=== PATIENT | male | born 1965 | race Caucasian/White ===

== ENCOUNTER 2023-11-06 20:49 | Emergency (ER) | payer OTHER, SELFPAY ==
[2023-11-06 20:52] VITALS: BP 175/102
--- NOTE | 2023-11-06 22:11 | ED.GENMED ---
History of Present Illness
General
Chief Complaint: Musculo-Skeletal Complaint
Source: patient
Exam Limitations: none
Time Seen by Provider: 11/06/23 21:50
Travel History
Have you had any contact with someone who has COVID-19?: No
Do you have any symptoms of coronavirus? Fever > 100 degrees, chills, cough, shortness of breath, sore throat, loss of taste or smell, muscle aches, or headache?: No
History of Present Illness
History of Present Illness:
This is a 57 year old male that comes in with c/o right sided chest pain. States that last Tuesday he was playing Hockey and at the beginning of the game he got hit on the side with a hockey puck. States that it missed all his padding. States that
he finished the game and also played on Tuesday night. States that he was a little sore and he iced the area and he felt better. Then today he started with increased pain on the right flank of the chest and he felt like he was unable to take a
deep breath. States that he also had some numbness in the right forearm. Denies any fever, chills, SOB, abd pain, nausea, vomiting, diarrhea, headache, dizziness, urinary burning.
Past History
Past History
ED Past Medical History: HTN, Hypercholesterolemia and Other (Vaso Vagal syncope)
ED Past Surgical History: None
Social History
Tobacco: Non-smoker
Alcohol: Occasional
Personal:
Living: with family
Review of Systems
Review of Systems
All Other Systems: ROS reviewed and negative except as documented in HPI and ROS
Constitutional: Reports no symptoms; Denies fever or chills
EENT: Reports no symptoms
Respiratory: Reports trouble breathing (Unable to take a deep breath); Denies cough
Cardiac: Reports chest pain (Right flank chest pain, )
ABD/GI: Reports no symptoms; Denies abdominal pain, nausea, vomiting or diarrhea
: Reports no symptoms; Denies dysuria, frequency or urgency
Musculoskeletal: Reports no symptoms
Skin: Reports no symptoms
Neurological: Reports no symptoms; Denies dizzy or headache
Psychiatric: Reports no symptoms
Phy Exam
General Physical Exam
General Presentation: well appearing and no apparent distress
General age: appears stated age
General Skin: warm and dry
General Habitus: normal
General Mental: alert
General Hydration: appears well hydrated
ENT Exam
ENT Exam: TM's normal, pharynx normal and neck supple
Eye Exam
Eye Exam: EOMI
Cardiovascular Exam
Cardiovascular Exam: regular rate/rhythm, no edema, no murmur and normal peripheral pulses
Pulmonary Exam
Pulmonary Exam: no respiratory distress, no rales, no crackles, no rhonchi, no wheezing, no cough, decreased breath sounds (Right base, Otherwise clear lungs) and other (Tenderness with palpation on the right lower rib area. )
Gastrointestinal Exam
Gastrointestinal Exam: normal bowel sounds, non tender, soft, no organomegaly, no pulsatile mass and non distended
Musculoskeletal Exam
Musculoskeletal Exam: full ROM
Skin Exam
Skin Exam: normal color, warm/dry, no rash, no petechia and other (Small contusion right lateral chest )
Psychiatric Exam
Psychiatric Exam: normal mood/affect
Course
Orders/Labs/Results
Orders:
Orders
11/06/23 21:48
Ribs, Right 3 View W/PA Chest [CR Ribs-right 3 Vw W/pa Chest*] Urgent
Comment:
Reason For Exam: Ice hockey injury
11/06/23 22:10
Electrocardiogram (*1) Urgent
Reason for Study: Chest Pain
Other Reason for Exam: rIGHT SIDED
EKG- Treatment ONCE
11/06/23 22:45
Complete Blood Count/With Diff Urgent
Comprehensive Metabolic Panel Urgent
D-Dimer Urgent
Troponin I Urgent
Abnormal Lab Results
11/06/23
22:45
RBC 4.65 L 10^6/uL
(4.70-6.10)
MCH 31.4 H pg
(27.0-31.0)
Alkaline Phosphatase 139 H U/L
(38-126)
11/06/23 22:45
11/06/23 22:45
Alk phos slightly elevated. D-dimer <0.27, Troponin <0.012
Vital Signs
Initial and Last Documented VS:
Initial Vital Signs
Temp Pulse Resp BP Pulse Ox
98.3 F 94 18 175/102 97
11/06/23 20:52 11/06/23 20:52 11/06/23 20:52 11/06/23 20:52 11/06/23 20:52
Last Documented Vital Signs
Temp Pulse Resp BP Pulse Ox
98.3 F 84 18 155/83 98
11/06/23 20:52 11/06/23 22:48 11/06/23 22:48 11/06/23 22:48 11/06/23 22:48
MDM/Problems Addressed
Differential Diagnosis Includes:
PE, Fracture ribs, PNA, Coronary syndrome
MDM/Problems Addressed:
This is a 57 year old male that comes in with c/o right lateral chest wall pain. States that he was hit in the side of his chest with a hockey puck last Tuesday. States that he iced it and it was sore but then he felt better. Today he started with
increased pain, can't take a deep breath. States that he also had some right arm numbness in the forearm.
Will check labs. D-dimer, ECG and chest x-ray, Patient refused pain medication at this.
Back into see patient. Reviewed all findings. Patient has no numbness at this time and states that he can push on the muscle to reproduce this discomfort. States that it is almost like when you over use your arms. Explained that he has a 9th rib
fracture and this will just take time to heal. Follow up with the family doctor. Tylenol or Ibuprofen for pain. Return with any concerns.
Chronic conditions affecting care:
NA
Acute Exacerbation and/or Progression of Chronic Illness:
NA
*Radiology
Radiology exam reviewed: radiology read reviewed (Chest- Subtle minimally displaced fracture of the anterolateral right ninth rib. The lungs appear slightly hypoinflated. There is no evidence of pneumothorax or pleural effusion. )
*Pulse Oximetry
Patient hypoxic: no
*EKG
Interpreted by ED Provider?: Yes
Heart Rate: 83
Rate: normal
Rhythm: sinus
Lueders: normal axis
Interval: normal interval
QRS Pattern: normal QRS
Ischemia: no ischemia
*Critical Care Note
Total Time (30-74mins, 75-104mins- exclusive of procedures): Not Applicable
ED Attending Note
-
Portions of this chart may have been created with voice recognition software.� Occasional wrong word or��sound alike� substitutions may have occurred due to the inherent limitations of voice recognition software.
Discharge Plan
Departure
Patient Disposition: Home (Routine Discharge)
Date of Disposition: 11/07/23
Time of Disposition: 00:15
Patient with high blood pressure during this ER visit?: Yes
Condition: Good
Covid-19: Not Applicable
Discharge Problem:
Right rib fracture
Instructions: Rib Fracture (DC), BLOOD PRESSURE
Referrals:
Gasper Schmitt MD [Family Provider] - Call in 1-3 days for appt
Activity Restrictions/Additional Instructions:
As discussed, your blood work is normal. Your Chest x-ray shows that there is a right 9th rib fracture. There is no pneumothorax of pleural effusion. Your D-dimer is negative fo there are no pulmonary embolism. Please use Tylenol 1000mg every 6
hours for pain or Ibuprofen 600mg every 6 hours with food for pain. Follow up with the family doctor. Remember to take deep breaths even if it hurts to open up the lower lung asif to prevent Pneumonia. IF YOU HAVE ANY OTHER CONCERNS PLEASE RETURN
TO THE EMERGENCY ROOM
Interventions
Interventions:
*Risk Screen - Suicide Last Done: 11/06/23 20:52
*General Assessment Last Done: 11/06/23 20:52
*Neglect/Abuse Screening Last Done: 11/06/23 20:52
*ED COVID-19 Vaccine History Last Done: 11/06/23 22:39
ED-Musculoskeletal Assessment Last Done: 11/06/23 22:58
Discharge Date and Time
Print Language: YORUBA
[2023-11-06 22:48] VITALS: BP 155/83
[2023-11-06 22:53] LABS: % Basophils 0.5 % (0-2); % Eosinophils 2.3 % (0-6); % Immature Granulocytes 0.2 % (0-0.5); % Lymphocytes 25.6 % (20.5-51.1); % Monocytes 6.2 % (1.7-9.3); % Neutrophils 65.2 % (42.2-75.2); Absolute Eosinophils 0.2 10^3/uL (0-0.7); Absolute Lymphocytes 2.2 10^3/uL (1.2-3.4); Absolute Monocytes 0.5 10^3/uL (0.1-0.6); Absolute Neutrophils 5.7 10^3/uL (1.4-6.5); Hematocrit 41.7 % (39.0-52.0); Hemoglobin 14.6 g/dL (13.0-18.0); Mean Corpuscular Hgb 31.4 pg (27.0-31.0); Mean Corpuscular Volume 89.7 fL (80.0-94.0); Mean Platelet Volume 8.3 fL (7.4-10.4); Nucleated Red Blood Cells % 0 % (-); Platelet Count 252 10^3/uL (130-400); Red Blood Cell Count 4.65 10^6/uL (4.70-6.10); Red Cell Dist. Width 12.7 % (11.5-14.5); White Blood Cell Count 8.7 10^3/uL (4.8-10.8)
[2023-11-06 23:10] LABS: ALT (SGPT) 30 U/L (0-50); AST (SGOT) 30 U/L (17-59); Albumin 4.7 g/dl (3.5-5.0); Alkaline Phosphatase 139 U/L (38-126); Blood Urea Nitrogen 15 mg/dl (9-20); Calcium 9.4 mg/dl (8.4-10.2); Carbon Dioxide 25 mmol/L (22-30); Chloride 104 mmol/L (98-107); Estimated Creatinine Clearance 110 ml/min; Glucose 99 mg/dl (70-99); Potassium 4.2 mmol/L (3.5-5.1); Sodium 135 mmol/L (135-145); Total Bilirubin 0.5 mg/dl (0.2-1.3); Total Protein 7.4 g/dl (6.3-8.2); eGFR > 60.00
[2023-11-06 23:17] LABS: D-Dimer < 0.27 ug/mlFEU (0.00-0.50)
[2023-11-06 23:18] LABS: Troponin I < 0.012 ng/ml
[2023-11-07 00:38] VITALS: BP 140/87
== END 2023-11-07 00:41 | disposition home or self-care (01) ==
LOC: EMR 20:49
PROVIDERS: Clinical Nurse Specialist Family Health; EMERGENCY PHYSICIAN Emergency Medicine; FAMILY PHYSICIAN Internal Medicine
DX: S22.31XA Fracture of one rib, right side, initial encounter for closed fracture (principal); R20.0 Anesthesia of skin; W21.220A Struck by ice hockey puck, initial encounter; Y93.22 Activity, ice hockey; I10 Essential (primary) hypertension; E78.00 Pure hypercholesterolemia, unspecified
CPT/HCPCS: 99283; 71101; 80053; 84484; 85025; 85379; 93005